=== PATIENT | male | born 1955 | race Caucasian/White ===

== ENCOUNTER 2018-10-14 10:57 | Inpatient (IN) | payer OTHER, SELFPAY ==
[2018-09-26 15:06] VITALS: BP 124/70; PULSE 79; RESP 16; TEMP 36.9; O2SAT 93; BMI 36.2
--- NOTE | 2018-09-26 15:30 | RAD_ITS ---
STUDY: X-RAY CHEST REASON FOR EXAM: Male, 63 years old. Chest pain TECHNIQUE: PA and lateral views of the chest COMPARISON: X-Ray Chest July 18, 2011 FINDINGS: The lungs are clear. There are no pleural effusions. There is no pneumothorax. The heart is normal in size. The visualized osseous structures are within normal limits. RAD/Chest PA and Lateral IMPRESSION: No acute thoracic pathology. Electronically Signed: Scot Marquez, at 16:13 EDT Tel , Service support ,
[2018-09-26 15:59] LABS: Absolute Neutrophil Count 7.3 X10^3/uL (2.0-7.7); Basophil# 0.07 X10^3/uL; Basophil% 0.6 % (0-1); Eosinophil# 0.25 X10^3/uL; Eosinophils% 2.3 % (0-5); Hematocrit 44.4 % (40-54); Hemoglobin 15.2 g/dl (13.0-16.5); Lymphocyte % 21.8 % (19-41); Mean Corp Hgb Conc 34.2 g/gl (32-36); Mean Corpuscular Hgb 32.2 pg (27.0-32.0); Mean Corpuscular Volume 94.1 fL (80-94); Mean Platelet Vol. 10.1 fl (6.2-12.0); Monocyte# 0.96 X10^3/uL; Monocyte% 8.7 % (0-10); Neutrophil # 7.29 X10^3/uL (2.7-7.7); Neutrophil % 66.3 % (47-70); Platelet Count 264 K/mm3 (150-450); RBC Distribution Width CV 12.8 % (11.6-14.6); RBC Distribution Width SD 43.4 fl (35.1-43.9); Red Blood Count 4.72 M/mm3 (4.6-6.2)
[2018-09-26 16:03] LABS: POSITIVE COUNT NO; POSITIVE DIFFERENTIAL NO; POSITIVE MORPHOLOGY NO
[2018-09-26 18:22] LABS: Anion Gap 6 (5-15); BUN 17 mg/dL (7-18); BUN/Creat Ratio 14.2 RATIO (10-20); Chloride 102 mmol/L (98-107); EST Glomerular Filtration Rate 65 mL/min (>60); Est Glom Filt Rate - Afr Amer 79 mL/min (>60); Estimated Creatinine Clearance 65.06 ml/min; Glucose 82 mg/dL (74-106); Potassium 3.5 mmol/L (3.5-5.1); Sodium Level 139 mmol/L (136-145)
--- NOTE | 2018-10-11 12:03 | CASEMGMT ---
Attempted to contact patient on cell phone to discuss discharge needs after upcoming surgery, no answer. Voicemail left requesting a return call. Laura Weldon LPN Clinical Support
--- NOTE | 2018-10-11 13:01 | CASEMGMT ---
Called and spoke with patient regarding discharge needs after upcoming surgery. Patient plants to return home with assistance from and/or daughter. Patient has outpatient physical therapy set up and will have assistance with transportation to/from. Patient has a walker and toilet riser. There is a bedroom and bathroom on the first level of the home and approx. 4-5 steps to enter. Informed patient that RN-CM will likely follow up after surgery for any further discharge planning needs. Laura Weldon LPN Clinical Support
[2018-10-14] VITALS (13 sets, daily range): BP systolic 106–140; BP diastolic 62–97; PULSE 48–84; RESP 16–18; TEMP 36.3–37; O2SAT 96–100; BMI 36.2; BMI 36.3
[2018-10-14] MEDS: Acetaminophen 500 MG Tablet 1000 MG PO ×3 (08:47→22:40)
[2018-10-14] MEDS: oxyCODONE HCl Cr 10 MG Tablet PO (08:48)
[2018-10-14] MEDS: Celecoxib 200 MG Capsule 400 MG PO (08:48)
[2018-10-14] MEDS: Lactated Ringers 1,000 ML 999 ML IV (09:07)
[2018-10-14] MEDS: Cefazolin 2 GM in 0.9% Normal Saline 100 ML IV (09:53)
--- NOTE | 2018-10-14 09:55 | HIP_PTH ---
PATIENT: JASMIN MAYORGA LOC: [id number] U#:[id number] AGE/SX: 63/M ROOM: [facility] RE10/14/[address]: Dr. Hamilton Rubio DO : 1955 BED: 1 DIS: 10/15/2018 SPEC #: [id number] RECD: 10/14/18 13:07 STATUS: BEHT REAzra #: [id number] SNEHA: 10/14/18 09:[address]: Hamilton Rubio DEPT: SURGICAL PATHOLOGY RECD BY: Timothy Powell ENTERED: 10/14/18 13:27 SP TYPE: TOTAL HIP OTHR DR: Dr. Ryan Whitten DO Tissues: Hip, NOS Procedures: Decalcification bone/plaque Surgery Specimen Level IV HEADER OPERATION: Total hip replacement PRE-OP DIAGNOSIS: Unilateral primary osteoarthritis TISSUE SUBMITTED: Femoral head and bone MICROSCOPIC DIAGNOSIS Femoral head and bone, total hip replacement: Bone and degenerative articular cartilage showing subchondral edema, fibrosis and microcyst formation, consistent with degenerative osteoarthritis. CE:wicho 10/17/18 MICROSCOPIC DESCRIPTION Slides are reviewed. GROSS DESCRIPTION Received is one container designated femoral head and bone. The specimen consists of a nicole femoral head with portion of femoral neck. The femoral head measures 6 x 6 x 5 cm and the portion of femoral neck measures 1 cm in length. The articular surface displays prominent osteophyte formation, eburnation and bone erosion. Also present in the specimen container are multiple irregular fragments of bone reamings and pink-yellow soft tissue measuring in aggregate 9 x 9 x 3 cm. Miller Helper sections are submitted in two cassettes as follows: 1 - soft tissue, 2 - bone after decalcification. / SJ:wicho 10/14/18 TC:5 CPT: 56307, 10142
--- NOTE | 2018-10-14 11:26 | PCM.OPRPT ---
Report of Operation Date of Procedure: 10/14/18 Pre-Operative Diagnosis: OA left hip Post-Operative Diagnosis: same Surgery/Procedure Performed:: Left THR Description of Surgical Findings:: Primary Surgeon/Physician: Hamilton Rubio environmental field team member: Helio De Guzman PA-C environmental field team member: Pre-Operative Diagnosis: OA left hip Post-Operative Diagnosis: same Surgery/Procedure Performed: Left THR Estimated Blood Loss: 150 cc Specimen's Removed: bone Type of Anesthesia: spinal ASA Class: ASA3 Severe Disease Implants: [Nasreen size 6 Accolade 2 stem, size 58 Trident tritanium cup, +0 MDM liner ] Surgical Indications: Patient has severe end-stage osteoarthritic changes in the [left ] hip. They have failed conservative measures including activity modification, anti-inflammatories, use of assistive devices. This to the point where the pain affects their ability to enjoy life and complete activities of daily living without discomfort. Patient has elected to undergo the above procedure Procedure Description: The patient was greeted in the preoperative area the [left ] hip was marked with surgical marker preoperative antibiotics administered. The patient was then taken to or suite in stable condition. Preoperative tranexamic acid was also utilized. Once the patient was placed in the supine position on the operating room table and once adequate anesthesia was obtained they were then placed in the lateral decubitus position with the surgical hip facing the field. All bony prominences were well-padded. A commercial hip position was utilized. The appropriate extremity was then prepped and draped in usual sterile fashion. Ioban was placed on the skin. Surgical timeout was performed and surgery was commenced. A standard posterior approach to the hip was then performed. Incision was planned and carried out with a #10 blade scalpel. Dissection was then carried length of the incision to the IT band which was split proximally and distally. A Charnley retractor was then placed for soft tissue retraction exposing the piriformis. A standard posterior capsulotomy was performed. Severe eburnation of bone was noted and periarticular osteophytes were identified consistent with severe end-stage osteoarthritis. A femoral neck osteotomy guide was used to usama the proximal femur. A femoral osteotomy was then created approximately 1 fingerbreadth above the lesser trochanter. This was measured and placed on the back table. Once this was complete acetabular retractors were placed anteriorly and posteriorly. Labrum was then removed from the acetabulum exposing the entire cup of the acetabulum. Sequential reaming was then commenced and the acetabulum was medialized and sequentially widened in order to accommodate appropriate size cup. The acetabular cup was then impacted into position to the appropriate depth referencing approximately 30? anteversion and 45? of inclination. Excellent purchase was obtained. [2] appropriate sized cancellous screws were placed in the cup. An appropriate size MDM liner was then placed. Attention was then turned to the femoral preparation. The hip was placed in the 90/90 position and a lateralizing box osteotome was utilized. Femoral starting awl was used followed by sequential broaching to the appropriate size. Excellent purchase was obtained with the stem no stem subsidence and excellent rotational stability was confirmed. A calcar reamer was then used in the trial head neck was placed on the broach. The hip was then located and taken through full range of motion flexion internal and external rotation as well as extension. Excellent stability was noted no impingement was identified of the components and leg lengths appear to be appropriate. The hip was at this point dislocated and the trial femoral components were removed. The final femoral stem was then implanted and impacted to the appropriate depth. Again excellent purchase was obtained no stem subsidence or rotational instability was noted. The hip was once again trialed and confirmation of leg length and stability was performed. Soft tissue tension also appeared to be appropriate. At this point the hip was redislocated and the trunnion was cleaned and dried meticulously in the appropriate size MDM femoral head was placed on the clean dry trunnion using a 12/14 Keane taper. The hip was once again relocated and again taken through full range of motion. I did inject a cocktail of postoperative pain medication in the deep and superficial tissues. Copious irrigation was performed. Anatomic closure of the piriformis tendon was performed through drill holes in the greater trochanter. A #1 Vicryl 0 Vicryl was utilized in subcutaneous tissue and surgical jude were placed in the skin. A well-padded nonadherent dressing was applied. Patient was taken to PACU in stable condition. No complications were identified. Will follow standard postop protocol for total hip arthroplasty. My diet assistant played a vital role in the procedure beginning with positioning, holding retraction of soft tissues, positioning the leg to optimize visualization during the procedure and assisting with wound closure. environmental field team member: Aniceto De Guzman Type of Anesthesia:: Spinal Anesthesiologist: Nestor Butcher Specimen's removed: bone Estimated Blood Loss (mL): 150 cc - Admit VTE Documentation VTE Present on Admission: No VTE Mechan Device Prophylaxis: SCD's, Thigh High DALJIT Hose VTE Pharm Prophylaxis ordered?: Yes
--- NOTE | 2018-10-14 11:31 | OP.PCM_ITS ---
Report of Operation Date of Procedure: 10/14/18 Pre-Operative Diagnosis: OA left hip Post-Operative Diagnosis: same Surgery/Procedure Performed:: Left THR Description of Surgical Findings:: Primary Surgeon/Physician: Hamilton Rubio financial services agent: Helio De Guzman PA-C financial services agent: Pre-Operative Diagnosis: OA left hip Post-Operative Diagnosis: same Surgery/Procedure Performed: Left THR Estimated Blood Loss: 150 cc Specimen's Removed: bone Type of Anesthesia: spinal ASA Class: ASA3 Severe Disease Implants: [Nasreen size 6 Accolade 2 stem, size 58 Trident tritanium cup, +0 MDM liner ] Surgical Indications: Patient has severe end-stage osteoarthritic changes in the [left ] hip. They have failed conservative measures including activity modification, anti-inflammatories, use of assistive devices. This to the point where the pain affects their ability to enjoy life and complete activities of daily living without discomfort. Patient has elected to undergo the above procedure Procedure Description: The patient was greeted in the preoperative area the [left ] hip was marked with surgical marker preoperative antibiotics administered. The patient was then taken to or suite in stable condition. Preoperative tranexamic acid was also utilized. Once the patient was placed in the supine position on the operating room table and once adequate anesthesia was obtained they were then placed in the lateral decubitus position with the surgical hip facing the field. All bony prominences were well-padded. A commercial hip position was utilized. The appropriate extremity was then prepped and draped in usual sterile fashion. Ioban was placed on the skin. Surgical timeout was performed and surgery was commenced. A standard posterior approach to the hip was then performed. Incision was planned and carried out with a #10 blade scalpel. Dissection was then carried length of the incision to the IT band which was split proximally and distally. A Charnley retractor was then placed for soft tissue retraction exposing the piriformis. A standard posterior capsulotomy was performed. Severe eburnation of bone was noted and periarticular osteophytes were identified consistent with severe end-stage osteoarthritis. A femoral neck osteotomy guide was used to usama the proximal fe mur. A femoral osteotomy was then created approximately 1 fingerbreadth above the lesser trochanter. This was measured and placed on the back table. Once this was complete acetabular retractors were placed anteriorly and posteriorly. Labrum was then removed from the acetabulum exposing the entire cup of the acetabulum. Sequential reaming was then commenced and the acetabulum was medialized and sequentially widened in order to accommodate appropriate size cup. The acetabular cup was then impacted into position to the appropriate depth referencing approximately 30? anteversion and 45? of inclination. Excellent purchase was obtained. [2] appropriate sized cancellous screws were placed in the cup. An appropriate size MDM liner was then placed. Attention was then turned to the femoral preparation. The hip was placed in the 90/90 position and a lateralizing box osteotome was utilized. Femoral starting awl was used followed by sequential broaching to the appropriate size. Excelle nt purchase was obtained with the stem no stem subsidence and excellent rotational stability was confirmed. A calcar reamer was then used in the trial head neck was placed on the broach. The hip was then located and taken through full range of motion flexion internal and external rotation as well as extension. Excellent stability was noted no impingement was identified of the components and leg lengths appear to be appropriate. The hip was at this point dislocated and the trial femoral components were removed. The final femoral stem was then implanted and impacted to the appropriate depth. Again excellent purchase was obtained no stem subsidence or rotational instability was noted. The hip was once again trialed and confirmation of leg length and stability was performed. Soft tissue tension also appeared to be appropriate. At this point the hip was redislocated and the trunnion was cleaned and dried meticulously in the appropriate size MDM femoral head was placed on the clean dry trunnion using a 12/14 Keane taper. The hip was once again relocated and again taken through full range of motion. I did inject a cocktail of postoperative pain medication in the deep and superficial tissues. Copious irrigation was performed. Anatomic closure of the piriformis tendon was performed through drill holes in the greater trochanter. A #1 Vicryl 0 Vicryl was utilized in subcutaneous tissue and surgical jude were placed in the skin. A well-padded nonadherent dressing was applied. Patient was taken to PACU in stable condition. No complications were identified. Will follow standard postop protocol for total hip arthroplasty. My assistant fitness manager played a vital role in the procedure beginning with positioning, holding retraction of soft tissues, positioning the leg to optimize visualization during the procedure and assisting with wound closure. financial services agent: Aniceto De Guzman Type of Anesthesia:: Spinal Anesthesiologist: Nestor Butcher Specimen's removed: bone Estimated Blood Loss (mL): 150 cc - Admit VTE Documentation VTE Present on Admission: No VTE Mechan Device Prophylaxis: SCD's, Thigh High DALJIT Feltone VTE Pharm Prophylaxis ordered?: Yes
--- NOTE | 2018-10-14 11:33 | RAD_ITS ---
STUDY: X-RAY - PELVIS AND LEFT HIP REASON FOR EXAM: Male, 63 years old. Postop. TECHNIQUE: 2 views of the pelvis and hip. COMPARISON: 09/21/2015. FINDINGS: There is a non-specific bowel gas pattern. Normal visualized soft tissue structures. Normal visualized portions of the bilateral iliac wings, sacroiliac joints and sacrum. Normal bilateral superior and inferior pubic rami. Normal pubic symphysis. Normal bilateral ischial tuberosities. Soft tissue area emphysema in the left hip following left metallic hip arthroplasty. The acetabular and femoral components of the left metallic hip prosthesis are in good anatomic alignment. Moderately pronounced degenerative narrowing of the right superior hip joint with spur formation of the right superior acetabular rim and right femoral head. RAD/Hip Min 2 Views (Portable) IMPRESSION: 1. Postoperative air emphysema in the left hip following left metallic hip arthroplasty. 2. No acute abnormality of the left metallic hip arthroplasty. 3. Moderate degenerative osteoporosis of the right hip joint. Electronically Signed: Benigno Jenkins MD at 12:27 EDT , Service support ,
[2018-10-14 12:19] LABS: Hematocrit 39.9 % (40-54); Hemoglobin 13.1 g/dl (13.0-16.5); Mean Corp Hgb Conc 32.8 g/gl (32-36); Mean Corpuscular Volume 97.3 fL (80-94); Mean Platelet Vol. 9.6 fl (6.2-12.0); Platelet Count 226 K/mm3 (150-450); RBC Distribution Width CV 13.2 % (11.6-14.6); RBC Distribution Width SD 46.6 fl (35.1-43.9)
[2018-10-14 12:21] LABS: Scan Indicated on CBC? Y/N NO
[2018-10-14 12:24] LABS: Anion Gap 3 (5-15); BUN 15 mg/dL (7-18); BUN/Creat Ratio 15.8 RATIO (10-20); Calcium,Total 8.4 mg/dL (8.5-10.1); Chloride 109 mmol/L (98-107); Creatinine, Serum 0.95 mg/dL (0.70-1.30); EST Glomerular Filtration Rate 85 mL/min (>60); Est Glom Filt Rate - Afr Amer 103 mL/min (>60); Estimated Creatinine Clearance 82.18 ml/min; Glucose 102 mg/dL (74-106); Potassium 4.1 mmol/L (3.5-5.1); Sodium Level 143 mmol/L (136-145)
[2018-10-14] MEDS: Lactated Ringers 1,000 ML 100 ML IV ×2 (13:12→22:13)
--- NOTE | 2018-10-14 15:26 | NURSING ---
Sitting in chair eating lunch. Rates pain 8 out of 10 but does not want any medications right now.
[2018-10-14] MEDS: 0.9% NaCl Peripheral Flush Adult/Peds IV (18:41)
[2018-10-14] MEDS: Cefazolin 1 GM/50 ML BAG IV (18:41)
[2018-10-14] MEDS: Ketorolac 30 MG/ML Syringe IV (18:41)
[2018-10-14] MEDS: Senna/Docusate Sodium 1 Tablet 2 TABLET PO (22:40)
[2018-10-14] MEDS: Aspirin 325 MG Tablet PO (22:40)
[2018-10-14] MEDS: oxyCODONE 5 MG Tablet PO (22:45)
[2018-10-15] MEDS: traMADol 50 MG Tablet PO (00:04)
[2018-10-15] MEDS: Cefazolin 1 GM/50 ML BAG IV (01:15)
[2018-10-15 02:41] VITALS: BP 110/69; PULSE 58; RESP 18; TEMP 36.6; O2SAT 97
[2018-10-15] MEDS: Ketorolac 30 MG/ML Syringe IV (02:44)
[2018-10-15 02:45] VITALS: PULSE 58
[2018-10-15] MEDS: Acetaminophen 500 MG Tablet 1000 MG PO ×2 (05:47→14:35)
[2018-10-15] MEDS: 0.9% NaCl Peripheral Flush Adult/Peds IV (05:47)
[2018-10-15] MEDS: oxyCODONE 5 MG Tablet PO ×2 (05:49→10:16)
[2018-10-15 06:20] LABS: Hematocrit 34.9 % (40-54); Hemoglobin 11.6 g/dl (13.0-16.5); Mean Corp Hgb Conc 33.2 g/gl (32-36); Mean Corpuscular Volume 96.1 fL (80-94); Mean Platelet Vol. 10.4 fl (6.2-12.0); Platelet Count 194 K/mm3 (150-450); RBC Distribution Width CV 13.1 % (11.6-14.6); RBC Distribution Width SD 43.6 fl (35.1-43.9); Red Blood Count 3.63 M/mm3 (4.6-6.2); Scan Indicated on CBC? Y/N NO; White Blood Count 9.1 K/mm3 (4.4-11.0)
[2018-10-15 06:38] LABS: Anion Gap 6 (5-15); BUN 18 mg/dL (7-18); BUN/Creat Ratio 18.6 RATIO (10-20); Chloride 111 mmol/L (98-107); Creatinine, Serum 0.97 mg/dL (0.70-1.30); EST Glomerular Filtration Rate 83 mL/min (>60); Est Glom Filt Rate - Afr Amer 100 mL/min (>60); Estimated Creatinine Clearance 83.02 ml/min; Glucose 99 mg/dL (74-106); Potassium 4.3 mmol/L (3.5-5.1); Sodium Level 144 mmol/L (136-145)
--- NOTE | 2018-10-15 07:19 | DCINST_ITS ---
May shower in (days): 3 - only if incision is dry and without drainage. Do NOT soak/submerge in tub/pool/ortiz/stream/hot tub. Call your doctor if your incision/area has: Increased Pain/ Swelling, Increased Redness, Foul Smelling Discharge Call your doctor if you observe: Fever of 101 or Higher, Calf discomfort, Uncontrolled pain Allergies/Adverse Reactions: Allergies No Known Allergies Allergy (Verified 10/14/18 08:31) Medications to take at Discharge Aspirin E.C. [Ecotrin] 81 mg PO DAILY@0800 09/26/18 Ibuprofen 200 mg PO PRN PRN 09/26/18 Triamterene/Hydrochlorothiazid [Triamterene-Hctz 37.5-25 mg Tb] 1 each PO DAILY 09/26/18 traMADol [Ultram (G)] 50 mg PO Q6H PRN PRN 09/26/18 Acetaminophen [Tylenol] 1,000 mg PO Q8 tablet 10/15/18 Aspirin 325 mg PO BID tablet 10/15/18 Oxycodone [Oxyir] 5 - 10 mg PO Q4H PRN PRN 7 Days #30 tab 10/15/18 The following prescriptions were given: Oxycodone [Oxyir] 5 - 10 mg PO Q4H PRN PRN 7 Days #30 tab PRN Reason: Mod-Severe Pain (4-02/06) Prescription Printed Primary Care Physician: Ryan Whitten [Primary Care Provider] - Test Results: Test results from this visit will be discussed in further detail at your follow- up appointment, if applicable.
--- NOTE | 2018-10-15 07:19 | PCM.PN.ORT ---
Subjective: Patient doing well this AM. Up at bedside eating breakfast. - Physical Exam General: Alert, Oriented x3, Cooperative, No apparent distress Extremities: No clubbing, No cyanosis, No edema, Capillary Refill Less than 3 Seconds, No Calf Tenderness Skin: Incision - stable Vital Signs Temp Pulse Resp BP Pulse Ox 98 F 58 L 18 110/69 97 10/15/18 02:41 10/15/18 02:45 10/15/18 02:41 10/15/18 02:41 10/15/18 02:41 Oxygen Delivery Method Room Air Weight: 260 lb 2.327 oz Body Mass Index (BMI) 36.3 Intake and Output for Last 24 Hours 10/13/18 10/14/18 10/15/18 23:59 23:59 23:59 Intake Total 2986 / 3787 1594 / 1594 Output Total 600 / 600 Balance 2386 / 3187 1594 / 1594 Laboratory Tests Past 24 Hrs 10/14/18 10/14/18 10/15/18 12:00 12:00 05:44 WBC 10.0 9.1 RBC 4.10 L 3.63 L Hgb 13.1 11.6 L Hct 39.9 L 34.9 L MCV 97.3 H 96.1 H MCH 32.0 32.0 MCHC 32.8 33.2 RDW 13.2 13.1 RDW Differential 46.6 H 43.6 Plt Count 226 194 MPV 9.6 10.4 Sodium 143 Potassium 4.1 Chloride 109 H Carbon Dioxide 31.0 Anion Gap 3 L BUN 15 Creatinine 0.95 Estim Creat Clear Calc 82.18 Est GFR (MDRD) Af Amer 103 Est GFR (MDRD) Non-Af 85 BUN/Creatinine Ratio 15.8 Glucose 102 Calcium 8.4 L 10/15/18 05:44 WBC RBC Hgb Hct MCV MCH MCHC RDW RDW Differential Plt Count MPV Sodium 144 Potassium 4.3 Chloride 111 H Carbon Dioxide 27.0 Anion Gap 6 BUN 18 Creatinine 0.97 Estim Creat Clear Calc 83.02 Est GFR (MDRD) Af Amer 100 Est GFR (MDRD) Non-Af 83 BUN/Creatinine Ratio 18.6 Glucose 99 Calcium 8.0 L Medical Necessity - Tobacco Use Smoking Status: Former smoker Tobacco Use: Non-smoker Assessment/Plan s/p Right THR PT this AM, home in PM
--- NOTE | 2018-10-15 09:30 | CASEMGMT ---
RAYNA YE Face to Face with patient for initial transition planning/care coordination assessment. RN CM introduced self and role at [facility]. Patient sitting in chair, alert and oriented. Patient willing to participate in assessment and is able to answer all questions appropriately. Care providers, pharmacy, and demographics verified. Patient wishes to discharge home and is setup with [facility] for outpatient therapy. Patient states he has no further needs or concerns at this time. CM to follow for discharge planning needs that may arise. PCP: [facility]: yadi Rubio Pharmacy: [facility] Insurance: MMO Prescription Benefit: yes Living Will/HPOA: none LNOK: Living Arrangements: Patient lives with in a mobile home with 4 steps and railing to enter the home. Transportation: DME/HHC: Patient states he has a walker, cane, raised toilet seat, and shower chair. Patient is scheduled for outpatient therapy 10/18/18 1430 Disposition Plan: Patient to discharge home with outpatient therapy, family support, and follow-up plans in place. Nila ZUNIGA, RN, CM
[2018-10-15 10:13] VITALS: BP 116/63; PULSE 60; RESP 18; TEMP 36.8; O2SAT 98
[2018-10-15] MEDS: Aspirin 325 MG Tablet PO (10:16)
[2018-10-15] MEDS: Senna/Docusate Sodium 1 Tablet 2 TABLET PO (10:16)
[2018-10-15] MEDS: Triamterene 37.5MG/Hctz 25MG Capsule 1 CAP PO (10:16)
[2018-10-15 10:20] VITALS: PULSE 60
--- NOTE | 2018-10-15 13:25 | CHAPLAIN ---
Type of Pastoral Visit _x__ Initial Visit ___ Follow-up Visit ___ On-call Visit ___ General Patient Visit ___ Spiritual Assessment ___ Family Conference ___ Bereavement ___ Rapid Response ___ Code Blue ___ Other (describe below) Pastoral Care Referral From _x__ Patient ___ Family ___ Nurse ___ Physician ___ Senior Quality Manager ___ Automotive General Manager ___ Other (describe below) Sacrament/Intervention _x__ Active listening ___ Anointing ___ Druze ___ Bereavement ___ Communion ___ Claire exploration ___ ___ Life review _x__ Prayer ___ Reconciliation ___ Sacrament of Sick ___ Supportive presence ___ Wedding ___ Other (describe below) Pastoral Comments
[2018-10-15 14:35] VITALS: BP 116/63; PULSE 67; RESP 18; TEMP 37.1; O2SAT 98
== END 2018-10-15 14:47 | disposition home or self-care (01) | DRG 470 ==
PROVIDERS: Admitting Provider Orthopaedic Surgery; Family Provider Family Medicine; PCP Family Medicine; Referring Provider Orthopaedic Surgery; Visit Provider Orthopaedic Surgery
PROC: 0SRB0JZ Replacement of Left Hip Joint with Synthetic Substitute, Open Approach (ICD-10-PCS; CPT 27130; principal; 2018-10-14 09:30)
DX: M16.12 Unilateral primary osteoarthritis, left hip (principal); J44.9 Chronic obstructive pulmonary disease, unspecified; Z87.891 Personal history of nicotine dependence
CPT/HCPCS: 36415; 71046; 73502; 80048; 85025; 85027; 87081; 88305; 88311; 93005; 97161; 97166; 97530; C1776; J7120; A4216

== ENCOUNTER → 2022-04-13 | Outpatient (CLI) | payer OTHER, SELFPAY ==
--- NOTE | 2022-04-13 16:00 | RAD_ITS ---
STUDY: X-RAY - PELVIS AND RIGHT HIP REASON FOR EXAM: Male, 66 years old. Chronic right hip pain. TECHNIQUE: 3 views of the pelvis and hip. COMPARISON: None. FINDINGS: There is a non-specific bowel gas pattern. Normal visualized soft tissue structures. Osteopenia. Mild arthrosis of both sacroiliac joints. Normal bilateral superior and inferior pubic rami. Mild arthrosis of the symphysis pubis. Normal bilateral ischial tuberosities. Left total hip arthroplasty with no complications noted in the visualized portions. Marked arthrosis of the right hip with slight lateral displacement of the femoral head in relation to the acetabulum. Subchondral sclerosis, subchondral cyst formation and osteophyte formation within the right hip. RAD/HIP, UNI W/ Pelvis 2-3 Views IMPRESSION: Osteopenia with mild arthrosis of the sacroiliac joints and symphysis pubis. Marked arthrosis of the right hip as described. No acute abnormality. Electronically Signed: Aniceto Caceres, at 10:27 EST ,
== END | disposition home or self-care (01) ==
LOC: RAD 15:49
PROVIDERS: PCP Family Medicine; Referring Provider Family Medicine; Visit Provider Family Medicine
DX: M25.551 Pain in right hip (principal); G89.29 Other chronic pain
CPT/HCPCS: 73502

== ENCOUNTER → 2022-06-06 | Outpatient (CLI) | payer OTHER, SELFPAY ==
--- NOTE | 2022-06-06 06:57 | EKG12_ITS ---
Test Reason : PRE-OP Blood Pressure : / mmHG Vent. Rate : 064 BPM Atrial Rate : 064 BPM P-R Int : 176 ms QRS Dur : 104 ms QT Int : 408 ms P-R-T Axes : 048 -23 035 degrees QTc Int : 420 ms Sinus rhythm with Premature atrial complexes in a pattern of bigeminy Otherwise normal ECG Confirmed by JENNIFER TRENT, LISET ([id number]), online editor NITIN RAMIREZ ([id number]) on 06/06/2022 2:01:01 PM Referred By: Hamilton Rubio Confirmed By:LISET RODRIGUEZ MD
[2022-06-06 07:39] LABS: Absolute Lymphocyte Count 1.82 X10^3/uL (0.83-4.51); Absolute Neutrophil Count 5.4 X10^3/uL (2.0-7.7); Basophil# 0.09 X10^3/uL; Basophil% 1.1 % (0-1); Eosinophil# 0.26 X10^3/uL; Eosinophils% 3.1 % (0-5); Hematocrit 46.6 % (40-54); Hemoglobin 15.2 g/dL (13.0-16.5); Lymphocyte # 1.82 X10^3/ul (0.83-4.51); Mean Corp Hgb Conc 32.6 g/dL (32-36); Mean Corpuscular Hgb 31.9 pg (27.0-32.0); Mean Corpuscular Volume 97.7 fL (80-94); Mean Platelet Vol. 9.8 fl (6.2-12.0); Monocyte# 0.63 X10^3/uL; Monocyte% 7.6 % (0-10); NRBC Flagged by Analyzer 0 % (0-5); Neutrophil # 5.42 X10^3/uL (2.7-7.7); Neutrophil % 65.7 % (47-70); Platelet Count 236 K/mm3 (150-450); RBC Distribution Width SD 45.9 fl (35.1-43.9); Red Blood Count 4.77 M/mm3 (4.6-6.2); White Blood Count 8.3 K/mm3 (4.4-11.0)
[2022-06-06 08:29] LABS: Albumin, Serum 3.5 g/dL (3.2-5.0); Anion Gap 4 (5-15); BUN 19 mg/dL (7-18); BUN/Creat Ratio 17.1 RATIO (10-20); Calcium,Total 9.8 mg/dL (8.5-10.1); Chloride 108 mmol/L (98-107); Creatinine, Serum 1.11 mg/dL (0.70-1.30); EST Glomerular Filtration Rate 70 mL/min (>60); Est Glom Filt Rate - Afr Amer 85 mL/min (>60); Glucose 104 mg/dL (74-106); Potassium 4.1 mmol/L (3.5-5.1); Sodium Level 142 mmol/L (136-145)
[2022-06-06 08:36] LABS: Hemoglobin A1c 5.5 % (3.8-5.6)
== END | disposition home or self-care (01) ==
PROVIDERS: Physician Assistant; PCP Family Medicine; Referring Provider Orthopaedic Surgery; Visit Provider Orthopaedic Surgery
DX: Z01.818 Encounter for other preprocedural examination (principal); Z01.810 Encounter for preprocedural cardiovascular examination
CPT/HCPCS: 36415; 80048; 82040; 83036; 85025; 93005

== ENCOUNTER → 2022-06-26 | Outpatient (CLI) | payer OTHER, SELFPAY ==
--- NOTE | 2022-06-26 07:03 | ECHOCS_ITS ---
Reason For Study: Abnormal EKG Procedure This was a 2D Doppler, Color Flow transthoracic echocardiogram. The study was technically difficult. Contrast injection was performed. Exam performed in department. Left Ventricle Normal size and thickness. The left ventricular ejection fraction is 65 %. Normal diastology for age. Right Ventricle Normal right ventricle. Atria The left and right atria are normal. Mitral Valve Trivial mitral valve insufficiency. Tricuspid Valve Trivial tricuspid valve insufficiency. Normal pulmonary artery pressure. Aortic Valve Trisinus/trileaflet aortic valve. Mild (1+) aortic valve insufficiency. Pulmonic Valve The pulmonic valve is not well visualized. Great Vessels Mildly dilated aortic root. Pericardium/Pleural No pericardial effusion. Medication 20 gauge I.V. with prn adaptor inserted into right arm. Diluted definity 2ml given slow IV push to enhance endocardial definition. MMode/2D Measurements & Calculations LVIDd: 5.7 cm IVSd: 1.0 cm Ao root diam: 4.1 cm LVIDs: 3.5 cm LVPWd: 1.1 cm LA dimension: 4.0 cm RVDd: 3.8 cm FS: 38.5 % LAV(MOD-bp): 69.7 ml LA A4 area: 19.8 cm2 RA A4 area: 15.4 cm2 LAV(MOD-bp) Indexed: 29.1 ml/m2 LAV(MOD-sp2): 78.6 ml LAV(MOD-sp4): 56.0 ml Time Measurements MV dec time: 0.18 sec Doppler Measurements & Calculations MV E max harris: 92.7 cm/sec Lat Peak E' Harris: 10.7 cm/sec Med Peak E' Harris: 10.2 cm/sec MV A max harris: 63.5 cm/sec E/E' lat: 8.7 E/E' med: 9.1 MV E/A: 1.5 MV V2 max: 93.9 cm/sec MV P1/2t max harris: 94.9 cm/sec Ao V2 max: 127.2 cm/sec MV max P.5 mmHg MV P1/2t: 61.0 msec Ao max P.5 mmHg MV V2 mean: 48.5 cm/sec MV dec slope: 455.3 cm/sec2 Ao V2 mean: 79.5 cm/sec MV mean P.1 mmHg Ao mean P.1 mmHg MV V2 VTI: 33.0 cm MVA(P1/2t): 3.6 cm2 Ao V2 VTI: 28.2 cm AV (velocity ratio): 0.94 AI max harris: 330.6 cm/sec LV V1 max: 113.1 cm/sec MR max harris: 411.0 cm/sec AI max P.7 mmHg LV V1 max P.2 mmHg MR max P.6 mmHg AI dec slope: 143.9 cm/sec2 LV V1 mean P.4 mmHg AI P1/2t: 673.0 msec LV V1 mean: 70.2 cm/sec LV V1 VTI: 26.4 cm PA V2 max: 92.3 cm/sec TR max harris: 269.5 cm/sec TR max P.1 mmHg ECHO/Echo Complete W/ Contrast Interpretation Summary The left ventricular ejection fraction is 65 %. Mild (1+) aortic valve insufficiency. Mildly dilated aortic root. Ordering Physician: Italia Elizabeth Referring Physician: Ryan Whitten Performed By: Fuentes Rodriguez RCS
--- NOTE | 2022-06-26 12:31 | STRESSREP_ITS ---
Stress Test Report Date: 06/26/2022 Procedure: Pharmacologic stress nuclear imaging study Indications: Preoperative evaluation; abnormal EKG Consent: Per the patient Procedure: The patient underwent pharmacologic (Regadenoson 0.4mg ) evaluation with a peak heart rate of 86 beats per minute (57%predicted maximal heart rate) and a peak blood pressure of 150/64 mmHg. The baseline ECG demonstrated normal sinus rhythm. The peak pharmacologic ECG demonstrated no ischemic changes. There were no cardiac dysrhythmias pretest, during pharmacologic infusion, or recovery. There was no complaint of chest discomfort during pharmacologic infusion or recovery. The patient was injected with 14.9 millicuries of technetium 99m Cardiolite and subsequently rest SPECT Cardiolite nuclear imaging was obtained in the horizontal long, vertical long, and short axis views. The patient underwent pharmacologic (Regadenoson) evaluation. The patient was injected with 45.0 millicuries of technetium 99m Cardiolite and subsequently stress SPECT Cardiolite nuclear imaging was obtained in the horizontal long, vertical long, and short axis views. A gated Cardiolite study at peak stress was obtained. The examination was stopped secondary to completion of protocol. Rest and stress SPECT Cardiolite nuclear imaging status post realignment, normalization, and attenuation correction demonstrate small apical defect of mild intensity. There is end systolic thickening and brightening. The gated Cardiolite study demonstrates myocardial thickening and inward wall motion. The reported LVEF is 65%. Impression: 1. Pharmacologic (Regadenoson) evaluation 2. Peak pharmacologic ECG with no ischemic change. 3. There were no cardiac dysrhythmias pretest, during pharmacologic infusion, or recovery. 5. Comparison of rest and stress SPECT Cardiolite nuclear imaging post attenuation correction shows the possibility of a very small apical reversible defect that may denote very small area of ischemia. 6. The gated Cardiolite study reports an LVEF of 65%. This note was generated with [employer] software. It may contain incorrect words, spelling, and punctuation that were not noted in checking the note before signing.
== END | disposition home or self-care (01) ==
LOC: CVS 07:01
PROVIDERS: PCP Family Medicine; Referring Provider Internal Medicine Cardiovascular Disease; Visit Provider Internal Medicine Cardiovascular Disease
DX: R94.31 Abnormal electrocardiogram [ECG] [EKG] (principal)
CPT/HCPCS: 78452; 93017; 93306; A9500; Q9957; A4216; C8929; J2785

== ENCOUNTER 2022-07-31 07:15 | Day surgery (SDC) | payer OTHER, SELFPAY ==
[2022-07-24 17:12] LABS: Magnesium 1.9 mg/dL (1.6-2.6)
[2022-07-24 17:16] LABS: Anion Gap 3 (5-15); BUN 20 mg/dL (7-18); BUN/Creat Ratio 17.5 RATIO (10-20); Chloride 109 mmol/L (98-107); Creatinine, Serum 1.14 mg/dL (0.70-1.30); EST Glomerular Filtration Rate 68 mL/min (>60); Est Glom Filt Rate - Afr Amer 82 mL/min (>60); Glucose 89 mg/dL (74-106); Potassium 4.1 mmol/L (3.5-5.1); Sodium Level 139 mmol/L (136-145); Thyroid Stim Hormone (TSH) 1.61 uIU/mL (0.358-3.74)
[2022-07-31] VITALS (12 sets, daily range): BP systolic 121–136; BP diastolic 59–85; PULSE 55–98; RESP 16–18; TEMP 36.1–36.8; O2SAT 94–100; BMI 38.0
--- NOTE | 2022-07-31 | HIP_PTH ---
PATIENT: JASMIN MAYORGA [place] [facility] [place][id number] AGE/SX: 67/M ROOM: RE07/31/[address]: Dr. Hamilton Rubio DO : 1955 BED: DIS: 07/31/2022 SPEC #: [id number] RECD: 07/31/22 13:08 STATUS: BETH REQ #: [id number] SNEHA: 07/31/22 00:[address]: Hamilton Rubio DEPT: SURGICAL PATHOLOGY RECD BY: Shahbaz Anderson ENTERED: 07/31/22 13:09 SP TYPE: TOTAL HIP OTHR DR: MD Dr. Italia Jovel MD Dr. Eugene Petrilla, DO Tissues: Hip, NOS Procedures: Decalcification bone/plaque Surgery Specimen Level IV HEADER OPERATION: ERAS, total hip replacement PRE-OP DIAGNOSIS: Primary osteoarthritis right hip TISSUE SUBMITTED: Right hip bone and tissue MICROSCOPIC DIAGNOSIS Right hip bone and tissue, total hip replacement/resection: Femoral head with degenerative osteoarthritic changes. CATARINO:wicho 08/03/2022 MICROSCOPIC DESCRIPTION Slides are reviewed. GROSS DESCRIPTION Received is one container labeled with the patient's name and designated bone and soft tissue hip, right. The specimen consists of a nicole femoral head with portion of femoral neck. The femoral head measures 5.5 x 5.0 x 6.0 cm and the femoral neck measures 1.5 cm in length. The articular surface displays prominent osteophyte formation, eburnation and bone erosion. Also present in the specimen container are multiple irregular fragments of bone reamings measuring in aggregate 9.0 x 10.0 x 3.0 cm. Charge Account Clerk sections are submitted in two cassettes as follows: 1 - bone reamings, 2 - femoral head after decalcification. / CATARINO:wicho 07/31/2022 TC:5 CPT: 35121, 51521
[2022-07-31] MEDS: Magnesium 2 GM for ERAS IV (08:18)
[2022-07-31] MEDS: Lactated Ringers 1,000 ML 15 ML IV (08:21)
[2022-07-31] MEDS: Gabapentin 600 MG Tablet PO (08:58)
[2022-07-31] MEDS: Acetaminophen 500 MG Tablet 1000 MG PO ×2 (08:58→16:09)
[2022-07-31 09:30] LABS: Bedside Glucose 103 mg/dL (74-106)
[2022-07-31] MEDS: TXA 1000mg in NS100 100ml (IVPB at Incision) 660 MG IV (10:38)
[2022-07-31] MEDS: JPS (Morphine 10mg/ml) OPERA.SITE (11:37)
[2022-07-31] MEDS: TXA 1000mg in NS100 100ml (IVPB at Closure) 660 MG IV (11:40)
--- NOTE | 2022-07-31 12:02 | OP.PCM_ITS ---
Report of Operation Date of Procedure: 07/31/22 Pre-Operative Diagnosis: OA right hip Post-Operative Diagnosis: same Surgery/Procedure Performed:: Right THR Description of Surgical Findings:: Report of Operation Date of Procedure: 07/31/22 Pre-Operative Diagnosis: OA [right ] hip Post-Operative Diagnosis: same Surgery/Procedure Performed: [right ] THR general activities therapist: Aniceto De Guzman PA-C Type of Anesthesia: spinal Anesthesiologist: Damir Crum M.D. Specimen's removed: bone Estimated Blood Loss (100 mL): Implants: Nasreen Accolade 2 size 7, 127 degree neck angle stem, 58 mm cluster hole Beaver tritanium cup, MDM liner with +4 femoral neck Surgical Indications: Patient has severe end-stage osteoarthritic changes in the [right ] hip. They have failed conservative measures including activity modification, anti- inflammatories, use of assistive devices. This to the point where the pain affects their ability to enjoy life and complete activities of daily living without discomfort. Patient has elected to undergo the above procedure Procedure Description: The patient was greeted in the preoperative area the [ right ] hip was marked with surgical marker preoperative antibiotics administered. The patient was then taken to or suite in stable condition. Preoperative tranexamic acid was also utilized. Once the patient was placed in the supine position on the operating room table and once adequate anesthesia was obtained they were then placed in the lateral decubitus position with the surgical hip facing the field. All bony prominences were well-padded. A commercial hip position was utilized. The appropriate extremity was then prepped and draped in usual sterile fashion. Ioban was placed on the skin. Surgical timeout was performed and surgery was commenced. A standard posterior approach to the hip was then performed. Incision was planned and carried out with a #10 blade scalpel. Dissection was then carried length of the incision to the IT band which was split proximally and distally. A Charnley retractor was then placed for soft tissue retraction exposing the piriformis. A standard posterior capsulotomy was performed. Severe eburnation of bone was noted and periarticular osteophytes were identified consistent with severe end-stage osteoarthritis. A femoral neck osteotomy guide was used to usama the proximal femur. A femoral osteotomy was then created approximately 1 fingerbreadth above the lesser trochanter. This was measured and placed on the back table. Once this was complete acetabular retractors were placed anteriorly and posteriorly. Labrum was then removed from the acetabulum exposing the entire cup of the acetabulum. Sequential reaming was then commenced and the acetabulum was medialized and sequentially widened in order to accommodate appropriate size cup. The acetabular cup was then impacted into position to the appropriate depth referencing approximately [45 degrees ] anteversion and [45 degrees ]of inclination. Excellent purchase was obtained. An appropriate size MDM liner was then placed. Attention was then turned to the femoral preparation. The hip was placed in the 90/90 position and a lateralizing box osteotome was utilized. Femoral starting awl was used followed by sequential broaching to the appropriate size. Excellent purchase was obtained with the stem no stem subsidence and excellent rotational stability was confirmed. A calcar reamer was then used in the trial head neck was placed on the broach. The hip was then located and taken through full range of motion flexion internal and external rotation as well as extension. Excellent stability was noted no impingement was identified of the components and leg lengths appear to be appropriate. The hip was at this point dislocated and the trial femoral components were removed. The final femoral stem was then implanted and impacted to the appropriate depth. Again excellent purchase was obtained no stem subsidence or rotational instability was noted. The hip was once again trialed and confirmation of leg length and stability was performed. Soft tissue tension also appeared to be appropriate. At this point the hip was redislocated and the trunnion was cleaned and dried meticulously in the appropriate size MDM femoral head was placed on the clean dry trunnion using a 12/14 Keane taper. The hip was once again relocated and again taken through full range of motion. I did inject a cocktail of postoperative pain medication in the deep and superficial tissues. Copious irrigation was performed. Anatomic closure of the piriformis tendon was performed through drill holes in the greater trochanter. A #1 Vicryl 0 Vicryl was utilized in subcutaneous tissue and surgical jude were placed in the skin. A well-padded nonadherent dressing was applied. Patient was taken to PACU in stable condition. No complications were identified. Will follow standard postop protocol for total hip arthroplasty. My customer care assistant played a vital role in the procedure beginning with positioning, holding retraction of soft tissues, positioning the leg to optimize visualization during the procedure and assisting with wound closure. Post-op Plan: DVT ppx; ASA 81 mg BID, thigh high compression stockings Follow up: in office in 2 weeks for wound check PT: to start POD #0 at hospital, outpatient PT should be arranged. Preoperative antibiotic: Ancef 2 grams IV Hamilton Rubio DO Surgeon: Hamilton Rubio general activities therapist: Aniceto De Guzman Type of Anesthesia: Spinal Anesthesiologist: Damir Crum Estimated Blood Loss (mL): 100 cc Fluids Replaced: 1000 cc crystalloid Admit VTE Documentation VTE Present on Admission: No VTE Mechan Device Prophylaxis: SCD's and Thigh High DALJIT Hose VTE Pharm Prophylaxis ordered?: Yes
--- NOTE | 2022-07-31 12:30 | RAD_ITS ---
EXAM: XR RIGHT HIP WITH PELVIS WHEN PERFORMED, 2 OR 3 VIEWS CLINICAL INDICATION: post op -- in PACU post op -- in PACU TECHNIQUE: Two or three views of the right hip with pelvis when performed. This report was created using [employer] report generation technology. COMPARISON: X-ray right hip 04/13/2022. FINDINGS: BONES/JOINTS: The patient is status post recent right hip replacement. Hardware appears to be adequately seated. There is a chronic left hip prosthesis, which appears to be intact. No displaced fracture. No destructive or sclerotic lesions. Note that overlapping bowel shadows may however obscure fine detail. Sacroiliac joint is unremarkable. No widening of the pubic symphysis. SOFT TISSUES: There is soft tissue emphysema in the right hip region as well as surgical jude, consistent with recent surgery. No soft tissue swelling or gas. RAD/Hip Min 2 Views (Portable) IMPRESSION: 1. Recent right hip replacement. The prosthesis appears to be adequately seated. 2. Chronic left hip replacement with intact prosthesis. Electronically Signed: Filiberto Jean-Baptiste MD at 3:12 EDT ,
[2022-07-31] MEDS: oxyCODONE 5 MG Tablet PO (16:09)
== END 2022-07-31 16:46 | disposition home or self-care (01) ==
LOC: SDC 07:27 → AC 07:27
PROVIDERS: Anesthesiology; Internal Medicine Cardiovascular Disease; PCP Family Medicine; Referring Provider Orthopaedic Surgery; Visit Provider Orthopaedic Surgery
PROC: 0SR90JZ Replacement of Right Hip Joint with Synthetic Substitute, Open Approach (ICD-10-PCS; CPT 27130; principal; 2022-07-31 09:30)
DX: M16.11 Unilateral primary osteoarthritis, right hip (principal); J44.9 Chronic obstructive pulmonary disease, unspecified; I10 Essential (primary) hypertension; M10.9 Gout, unspecified; Z79.82 Long term (current) use of aspirin; Z79.899 Other long term (current) drug therapy; Z96.642 Presence of left artificial hip joint; Z87.891 Personal history of nicotine dependence
CPT/HCPCS: 27130; 01214; 36415; 73502; 80048; 82962; 83735; 84443; 87081; 88305; 88311; 97162; C1776; J7120; J2405

== ENCOUNTER → 2022-12-23 | Outpatient (CLI) | payer OTHER, SELFPAY ==
[2022-12-23 11:00] LABS: Anion Gap 3 (5-15); BUN 17 mg/dL (7-18); BUN/Creat Ratio 17.1 RATIO (10-20); Calcium,Total 9.9 mg/dL (8.5-10.1); Chloride 105 mmol/L (98-107); Cholesterol 159 mg/dL (200); Creatinine, Serum 0.99 mg/dL (0.70-1.30); EST Glomerular Filtration Rate 80 mL/min (>60); Est Glom Filt Rate - Afr Amer 97 mL/min (>60); Glucose 97 mg/dL (74-106); High Density Lipoprotein 35 mg/dL; Potassium 3.9 mmol/L (3.5-5.1); Sodium Level 140 mmol/L (136-145); Triglycerides 90 mg/dL; Very Low Density Lipoprotein 18 mg/dL (5-40)
== END | disposition home or self-care (01) ==
LOC: LAB 09:45
PROVIDERS: PCP Family Medicine; Referring Provider Internal Medicine Cardiovascular Disease; Visit Provider Internal Medicine Cardiovascular Disease
DX: I10 Essential (primary) hypertension (principal); I35.1 Nonrheumatic aortic (valve) insufficiency; R94.39 Abnormal result of other cardiovascular function study
CPT/HCPCS: 36415; 80048; 80061

== ENCOUNTER → 2024-08-22 | Outpatient (CLI) | payer OTHER, SELFPAY ==
--- NOTE | 2024-08-22 13:46 | ECHOD_ITS ---
Reason For Study Reason For Study: nonrheumatic AV insufficiency Procedure This was a 2D Doppler, Color Flow transthoracic echocardiogram. Exam performed in department. Left Ventricle Normal size and thickness. The LV systolic function is normal. EF is 65 %. No evidence for diastolic dysfunction. Right Ventricle Normal right ventricle. A moderator band is seen in the right ventricle. Atria The left and right atria are normal. Prominent eustachian valve. Mitral Valve The mitral valve is structurally normal. No prolapse or stenosis seen. Tricuspid Valve Trivial tricuspid valve insufficiency. Right ventricular systolic pressure estimated to be 41 mmHg. Aortic Valve Trisinus/trileaflet aortic valve. Mild (1+) aortic valve insufficiency. Pulmonic Valve Mild (1+) pulmonic valve insufficiency. Great Vessels Mildly dilated aortic root. Aortic root size 4.0 cm. Not significantly different from last study on 06/26/2022. Pericardium/Pleural No pericardial effusion. MMode/2D Measurements & Calculations LVIDd: 5.6 cm IVSd: 1.0 cm Ao root diam: 4.0 cm LVIDs: 3.4 cm LVPWd: 1.2 cm FS: 38.1 % asc Aorta Diam: 4.3 cm LAV(MOD-bp): 67.2 ml LVAd ap4: 29.9 cm2 LAV(MOD-bp) Indexed: 27.9 ml/m2 LVLd ap4: 8.3 cm LAV(MOD-sp2): 65.5 ml EDV(MOD-sp4): 89.7 ml LAV(MOD-sp4): 65.8 ml EDV(sp4-el): 92.0 ml LVAs ap4: 15.5 cm2 LVLs ap4: 6.2 cm ESV(MOD-sp4): 32.6 ml ESV(sp4-el): 32.8 ml EF(MOD-sp4): 63.7 % EF(sp4-el): 64.4 % LVAd ap2: 26.1 cm2 SV(MOD-sp4): 57.1 ml SV(MOD-sp2): 44.1 ml LVLd ap2: 8.1 cm SI(MOD-sp4): 23.8 ml/m2 SI(MOD-sp2): 18.4 ml/m2 EDV(MOD-sp2): 72.3 ml EDV(sp2-el): 71.3 ml LVAs ap2: 14.3 cm2 LVLs ap2: 6.4 cm ESV(MOD-sp2): 28.2 ml ESV(sp2-el): 27.2 ml EF(MOD-sp2): 61.0 % SV(sp4-el): 59.3 ml LA dimension(2D): 4.1 cm LA A4 area: 21.2 cm2 RA A4 area: 15.8 cm2 TAPSE: 2.7 cm Time Measurements MV dec time: 0.25 sec Doppler Measurements & Calculations MV E max harris: 69.9 cm/sec Lat Peak E' Harris: 7.5 cm/sec Med Peak E' Harris: 7.8 cm/sec MV A max harris: 52.0 cm/sec E/E' lat: 9.3 E/E' med: 9.0 MV E/A: 1.3 MV V2 max: 75.5 cm/sec MV P1/2t max harris: 74.0 cm/sec Ao V2 max: 141.0 cm/sec MV max P.3 mmHg MV P1/2t: 73.6 msec Ao max P.0 mmHg MV V2 mean: 40.8 cm/sec Ao V2 mean: 91.3 cm/sec MV mean P.77 mmHg MV dec slope: 294.5 cm/sec2 Ao mean P.9 mmHg MV V2 VTI: 28.7 cm MVA(P1/2t): 3.0 cm2 Ao V2 VTI: 30.0 cm AV (velocity ratio): 0.84 LV V1 max: 117.4 cm/sec PA V2 max: 91.6 cm/sec PI dec slope: 95.5 cm/sec2 LV V1 max P.5 mmHg PA V2 mean: 63.7 cm/sec LV V1 mean P.8 mmHg PA V2 VTI: 16.5 cm LV V1 mean: 78.1 cm/sec LV V1 VTI: 25.2 cm TR max harris: 256.0 cm/sec TR max P.2 mmHg ECHO/Echo Complete Interpretation Summary The LV systolic function is normal. EF is 65 %. No evidence for diastolic dysfunction. Right ventricular systolic pressure estimated to be 41 mmHg. Mild (1+) aortic valve insufficiency. Mild (1+) pulmonic valve insufficiency. Mildly dilated aortic root. Aortic root size 4.0 cm. Not significantly differen t from last study on 06/26/2022. Ordering Physician: Italia Elizabeth Referring Physician: Ryan Whitten Performed By: Kelly Patel, MARIANNE, RVT
== END | disposition home or self-care (01) ==
LOC: CT 13:43 → CVS 13:46
PROVIDERS: PCP Family Medicine; Referring Provider Internal Medicine Cardiovascular Disease; Visit Provider Internal Medicine Cardiovascular Disease
DX: Z01.810 Encounter for preprocedural cardiovascular examination (principal); I35.1 Nonrheumatic aortic (valve) insufficiency
CPT/HCPCS: 93306

== ENCOUNTER 2024-09-09 11:25 | Emergency (ER) | payer OTHER, SELFPAY ==
[2024-09-09 11:25] VITALS: BP 147/57; PULSE 103; RESP 22; TEMP 39.6; O2SAT 98
--- NOTE | 2024-09-09 11:44 | EDS_ITS ---
HPI History of Present Illness Chief Complaint: General Illness Informant: patient Onset/Context/Timing Onset: Yesterday Context: Gradual Onset Timing: Continuous Quality: Weakness Location: Generalized Worsened by: Nothing Relieved by: Nothing Narrative Narrative: Patient presents with nausea, vomiting, subjective fevers, and chills that began yesterday. Patient states he ate some salad yesterday and thinks it might have been bad. Patient started having nausea and vomiting after that. Patient states that he feels weak all over. Patient states nothing makes his symptoms better and nothing makes it worse. Patient admits to a recent cough. Patient also admits to some general myalgias. Patient denies any chest pain or shortness of breath. Patient denies any urinary complaints. [facility] Medical History Wears dentures Ambulates with cane Gout Former smoker History of echocardiogram History of stress test Cardiology follow-up encounter Hypertension Dependent edema Chronic gout Erectile dysfunction COPD (chronic obstructive pulmonary disease) Abnormal EKG Pre-operative cardiovascular examination Pain of right hip joint Home Medications ?Medication ?Instructions ?Recorded ?Last Taken ?Type aspirin 81 mg tablet,delayed 81 mg PO DAILY@0800 BLOOD THINNER 09/26/18 07/24/22 History release hydrochlorothiazide 25 mg tablet 25 mg PO DAILY #90 TA BLETS 07/31/24 Unknown Rx losartan 50 mg tablet 50 mg PO DAILY #90 TABLETS 0 07/31/24 Unknown Rx metoprolol succinate 25 mg 25 mg PO DAILY #90 TABLETS 07/31/24 Unknown Rx tablet,extended release 24 hr Allergy/AdvReac Type Severity Reaction Status Date / Time No Known Allergies Allergy Verified 09/09/24 11:27 Family History Mother CVA (cerebral vascular accident) Father COPD (chronic obstructive pulmonary disease) smoker Heart failure Kidney disease Sister Pulmonary embolism, Onset Age: 70 post op TKR Breast cancer Surgical History History of total right hip arthroplasty (~07/2022) History of total left hip replacement Social History household members: spouse housing: house Smoking Status: Former smoker alcohol intake: current alcohol intake frequency: a few times a month substance use type: does not use caffeine: Yes Type: coffee Number of servings: 2 ROS ROS ED Constitutional Constitutional ED: Reports chills, fever(s) and subjective Eyes Eyes: Denies blurry vision or change in vision ENT ENT ED: Denies rhinorrhea or sore throat Cardiovascular Cardiovascular: Denies chest pain or palpitations Respiratory/Chest Respiratory/Chest: Reports cough; Denies dyspnea Gastrointestinal Gastrointestinal: Reports nausea and vomiting Genitourinary Genitourinary ED: Denies dysuria or hematuria Musculoskeletal Musculoskeletal: Reports back pain and neck pain Integumentary Denies abscess or rash Neurologic Neurologic: Denies headache(s) or weakness Allergic/Immunologic Allergic/Immunologic ED: Denies mouth swelling or urticaria EXAM Physical Exam Const Vital Signs: 09/09/24 11:25 09/09/24 11:44 09/09/24 13:25 Temperature 103.2 F H Temperature Source Oral Pulse Rate 103 H 82 Respiratory Rate 22 H Respiratory Effort Normal Non-Labored Blood Pressure 147/57 H 130/78 H Blood Pressure Mean 87 95 Pulse Ox 98 98 Oxygen Delivery Method Room Air 09/09/24 13:47 Temperature 99.1 F Temperature Source Pulse Rate 82 Respiratory Rate 18 Respiratory Effort Blood Pressure 130/78 H Blood Pressure Mean 95 Pulse Ox 98 Oxygen Delivery Method Positive well nourished and well developed General Appearance ED: well developed and NAD HEENT Reports moist mucous membranes Neck supple and no JVD Resp normal respiratory effort Auscultation: wheezes scattered wheezes Cardio regular rate and regular rhythm GI non-tender and non-distended Palpation: soft Neuro oriented x3, CN's II-XII intact bilaterally and no sensory deficits noted Sensorium / Orientation: alert Motor Exam: strength 5/5 throughout Psych mental status grossly normal MDM MDM MDM Narrative Medical decision making narrative: Differential diagnosis includes viral illness, bronchitis, pneumonia, gastroenteritis, dehydration, electrolyte abnormality, and urinary tract infection. CBC will be obtained to assess for leukocytosis and anemia. Basic metabolic profile will be obtained to assess for electrolyte abnormality and renal function. Chest x-ray will be obtained to assess for pneumonia or bronchitis. COVID-19, influenza, and RSV PCR will be obtained to assess for viral illness. History & Record Review Additional record(s) reviewed:: Prior outpatient record and Prior labs Lab Data Attestation: I reviewed the patient's lab results. Lab results narrative: CBC was reviewed. There is a leukocytosis of 16.4. Remainder is within normal limits. Basic metabolic profile was reviewed. BUN was 23 and creatinine was 1.37. These are slightly increased from previous results. Glucose was mildly elevated at 135. Urinalysis was reviewed. Leukocyte Estrace was 25 and there is 0-5 white blood cells and rare bacteria. Occult blood was 250 with 10-25 red blood cells. COVID-19 PCR was reviewed and was negative. Influenza PCR was reviewed and was negative for influenza A and influenza B. RSV PCR was reviewed and was negative. Labs: Laboratory Results - last 24 hr 09/09/24 09/09/24 11:32 12:02 WBC 16.4 H RBC 4.34 L Hgb 14.3 Hct 41.6 MCV 95.9 H MCH 32.9 H MCHC 34.4 RDW Std Deviation 47.1 H RDW Coeff of Mary 13.3 Plt Count 152 MPV 9.9 Immature Gran % (Auto) 1.200 H Neut % (Auto) 95.1 H Lymph % (Auto) 2.3 L Garrard % (Auto) 1.1 Eos % (Auto) 0.0 Baso % (Auto) 0.3 Absolute Neuts (auto) 15.6 H Absolute Lymphs (auto) 0.38 L Nucleated RBC % 0 Differential Comment SCANNED Sodium 136 Potassium 3.6 Chloride 100 Carbon Dioxide 23.9 Anion Gap 12 BUN 23 H Creatinine 1.37 H Est GFR (MDRD) Non-Af 56 L BUN/Creatinine Ratio 16.4 Glucose 135 H Calcium 9.6 Urine Color Yellow Urine Clarity Sl. Cloudy Urine pH 6.0 Ur Specific Dewey 1.015 Urine Protein 100 H Urine Glucose (UA) Normal Urine Ketones Negative Urine Occult Blood 250 H Urine Nitrite Negative Urine Bilirubin Negative Urine Urobilinogen 1 H Ur Leukocyte Esterase 25 H Urine RBC 10-25 SEEN Urine WBC 0-5 SEEN Ur Squamous Epith Cells 0 SEEN Urine Bacteria RARE Urine Mucus 1+ Urine Yeast RARE Radiography Chest X-Ray - ED: 2 View, Read by ED Physician, Read by Radiologist and No Acute Disease Diagnostic Testing: Clinical Impression(s) from Imaging Studies Chest X-Ray 09/09/24 12:00 IMPRESSION: No acute process is identified in the chest. Reading Location: [facility] PA and lateral chest x-ray was obtained. There are 2 views. On my independent interpretation, lung mendoza are clear. There is normal cardiac silhouette. Bony thorax is normal. There is no acute process noted. Radiologist also interpreted the x-ray and agrees. Treatment and Re-Evaluation :: Patient was given a fluids. Patient was given Tylenol. Patient was advised of his findings. Patient was advised that this is most likely a viral illness. Patient was instructed to continue with Tylenol or ibuprofen as needed for any fevers. Patient was instructed to drink plenty of fluids. Patient was instructed to follow-up with his primary care physician in 5 to 7 days. Patient understood and was agreeable with the plan. All questions were answered. Discharge Plan Triage Chief Complaint: General Illness ED Provider: Mitchell Russell Dx/Rx/DC Orders Clinical Impression: Viral illness, Hypertension Instructions: ED Viral Syndrome (Adult) Prescriptions: No Action aspirin 81 MG tablet 81 mg PO DAILY@0800 losartan 50 mg tablet 50 mg PO DAILY Qty: 90 3RF metoprolol succinate 25 mg tablet extended release 24 hr 25 mg PO DAILY Qty: 90 3RF hydrochlorothiazide 25 mg tablet 25 mg PO DAILY Qty: 90 3RF Primary Care Provider: Ryan Whitten Referrals: Ryan Whitten DO [Primary Care Provider] - 5-7 Days Print Language: Swedish Disposition Disposition: Home, Self Care Discharge Date/Time: 09/09/24 13:48
[2024-09-09] MEDS: 0.9% Normal Saline (1000mL) 1,000 ML 1000 ML IV ×2 (12:00→13:01)
--- NOTE | 2024-09-09 12:00 | RAD_ITS ---
PROCEDURE: CHEST PA AND LATERAL 09/09/2024 REASON FOR EXAM: COUGH TECHNIQUE: Frontal and lateral views of the chest. COMPARISON: September 26, 2018 FINDINGS: Heart size and mediastinal configuration are within normal limits. There is no focal infiltrate or consolidation. There is no pneumothorax or effusion. There are midthoracic compression deformities, similar to the prior. Aortic calcifications are visible. RAD/Chest PA and Lateral IMPRESSION: No acute process is identified in the chest. Reading Location: [facility]
[2024-09-09 12:04] LABS: Absolute Lymphocyte Count 0.38 X10^3/uL (0.83-4.51); Absolute Neutrophil Count 15.6 X10^3/uL (2.0-7.7); Basophil# 0.05 X10^3/uL; Basophil% 0.3 % (0-1); Differential Indicated SCAN CRITERIA MET; Hematocrit 41.6 % (40-54); Hemoglobin 14.3 g/dL (13.0-16.5); Lymphocyte # 0.38 X10^3/ul (0.83-4.51); Lymphocyte % 2.3 % (19-41); Mean Corp Hgb Conc 34.4 g/dL (32-36); Mean Corpuscular Hgb 32.9 pg (27.0-32.0); Mean Corpuscular Volume 95.9 fL (80-94); Mean Platelet Vol. 9.9 fl (6.2-12.0); Monocyte# 0.18 X10^3/uL; Monocyte% 1.1 % (0-10); NRBC Flagged by Analyzer 0 % (0-5); Neutrophil # 15.63 X10^3/uL (2.7-7.7); Neutrophil % 95.1 % (47-70); POSITIVE DIFFERENTIAL YES; POSITIVE MORPHOLOGY YES; Platelet Count 152 K/mm3 (150-450); RBC Distribution Width CV 13.3 % (11.6-14.6); RBC Distribution Width SD 47.1 fl (35.1-43.9); Red Blood Count 4.34 M/mm3 (4.6-6.2); White Blood Count 16.4 K/mm3 (4.4-11.0)
[2024-09-09 12:07] LABS: Squamous Epithelial Cells - UA 0 SEEN /hpf (0-5)
[2024-09-09 12:21] LABS: Color, Urine Yellow (Yellow); Glucose, Dipstick Normal (Normal); Ketone-Dipstick Negative (Negative); Leukocyte Esterase-Dipstick 25 /ul (Negative); Nitrite-Dipstick Negative (Negative); Occult Blood-Urine 250 /ul (Negative); Protein-Dipstick 100 mg/dl (Negative); Specific Gravity, Urine 1.015 (1.002-1.030); Urine Bilirubin Dipstick Negative (Negative); Urine Clarity Sl. Cloudy (Clear); Urine Urobilinogen 1 mg/dl (Normal)
[2024-09-09 12:24] LABS: Differential Comment SCANNED
[2024-09-09 12:31] LABS: Red Blood Cells-Urine 10-25 SEEN /hpf (0-5); White Blood Cells 0-5 SEEN /hpf (0-5)
[2024-09-09 12:33] LABS: Bacteria RARE /hpf (None Seen); Mucous, Urine 1+ /hpf (<or=2+); Yeast-Urine RARE /hpf (None Seen)
[2024-09-09 12:38] LABS: Anion Gap 12 (5-15); BUN 23 mg/dL (4-19); BUN/Creat Ratio 16.4 RATIO (10-20); Calcium,Total 9.6 mg/dL (7.6-11.0); Carbon Dioxide 23.9 mmol/L (21.0-32.0); Chloride 100 mmol/L (98-108); Creatinine, Serum 1.37 mg/dL (0.70-1.20); EST Glomerular Filtration Rate 56 (>60); Glucose 135 mg/dL (70-99); Potassium 3.6 mmol/L (3.3-5.1); Sodium Level 136 mmol/L (133-145)
[2024-09-09] MEDS: Acetaminophen 500 MG Tablet 1000 MG PO (13:01)
[2024-09-09 13:25] VITALS: BP 130/78; PULSE 82; O2SAT 98
[2024-09-09 13:47] VITALS: BP 130/78; PULSE 82; RESP 18; TEMP 37.3; O2SAT 98
== END 2024-09-09 13:48 | disposition home or self-care (01) ==
PROVIDERS: Emergency Provider Emergency Medicine; PCP Family Medicine; Visit Provider Emergency Medicine
DX: B34.9 Viral infection, unspecified (principal); J44.9 Chronic obstructive pulmonary disease, unspecified; Z87.891 Personal history of nicotine dependence; I10 Essential (primary) hypertension; R11.2 Nausea with vomiting, unspecified
CPT/HCPCS: 71046; 80048; 81001; 85025; 87631; 96360; 96361; 99282; A4216

== ENCOUNTER → 2025-04-15 | Outpatient (CLI) | payer MEDICARE, SELFPAY ==
--- NOTE | 2025-04-15 15:10 | RAD_ITS ---
PROCEDURE: PELVIS 1 OR 2 VIEWS 04/15/2025 REASON FOR EXAM: PRESSURE ULCER R BUTTOCK R/O OSTEOMYELITIS TECHNIQUE: Procedure Code: RADPEL Modality: DX Procedure: Single-view AP pelvis. COMPARISON: Right hip and pelvis study of 04/13/2022. RAD/Pelvis 1 or 2 Views IMPRESSION: Prominent degenerative changes of the visualized lower lumbar spine have progre ssed since the prior study of 2021. Mild symmetric sacroiliac joint degenerative changes are seen. Bilateral total hip prostheses are in place, without evidence of loosening or m etallic fracture on the solitary view obtained. No osseous destructive change is seen. No fracture or dislocation is evident. Reading Location: [place] [id number]
== END | disposition home or self-care (01) ==
PROVIDERS: PCP Family Medicine; Visit Provider Surgery
DX: L89.329 Pressure ulcer of left buttock, unspecified stage (principal)
CPT/HCPCS: 72170